=== PATIENT | female | born 1975 | race Caucasian/White ===

== ENCOUNTER 2016-10-27 20:35 | Emergency (ER) | payer SELFPAY ==
[~2016-10-27] VITALS: Ht 160 cm; Wt 61.6 kg
[2016-10-27 20:40] VITALS: TEMP 36.8; Ht 160 cm; Wt 61.6 kg
[2016-10-27] MEDS ORDERED: ONDANSETRON INJ 2 MG/ML 2 ML VIAL IV STA (21:35)
[2016-10-27] MEDS ORDERED: SODIUM CHLORIDE 0.9% 500ML 500 ML IV STA (21:35)
[2016-10-27] MEDS ORDERED: SODIUM CHLORIDE 0.9% 1000ML 1,000 ML IV STA (21:35)
[2016-10-27] MEDS ORDERED: MoRPHine SULFATE 4 MG/ML 1 ML CARP\\VIAL IV STA (21:35)
[2016-10-27 21:50] VITALS: O2SAT 98
--- NOTE | 2016-10-27 21:56 | DIAGNOSTIC IMAGING REPORT ---
CHEST ONE VIEW PORTABLE CLINICAL HISTORY: CHEST PAIN dyspnea COMPARISON STUDY: No previous studies for comparison. FINDINGS: The bones soft tissues and hemidiaphragms are normal. The cardiomediastinal silhouette is normal. The lungs are clear. The pulmonary vasculature is normal. IMPRESSION: Negative chest. Electronically signed by: Lencho Sandoval M.D. 10/27/2016 9:55 PM Dictated Date/Time: 10/27/2016 9:55 PM
[2016-10-27 22:00] LABS: BASO % 0.9 %; BASO ABS # 0.06 K/uL (0-0.2); COMPLETE YES; EOS % 2.7 %; IG% 0.1 %; LYMPH % 42.8 %; LYMPH ABS # 3.02 K/uL (1.2-3.4); MEAN CELL VOLUME 89.9 fL (80-100); MEAN CORPUSCULAR HEMOGLOBIN 32.1 pg (25-34); MEAN CORPUSCULAR HGB CONC 35.7 g/dl (32-36); MONO % 8.4 %; NEUT % 45.1 %; PLATELET COUNT 284 K/uL (130-400); RED BLOOD COUNT 5.23 M/uL (4.2-5.4); WHITE BLOOD COUNT 7.05 K/uL (4.8-10.8)
[2016-10-27 22:02] LABS: POINT OF CARE TROPONIN I 0.01 ng/ml (0-0.045)
[2016-10-27 22:07] LABS: BUN/CREATININE RATIO 11.4 (10-20); CALCIUM 8.7 mg/dl (8.5-10.1); CREATININE 0.99 mg/dl (0.60-1.20); POTASSIUM 3.2 mmol/L (3.5-5.1)
[2016-10-27 22:12] LABS: CKMB/CK RATIO 0.6 (0-3.0)
[2016-10-27] MEDS ORDERED: POTASSIUM CHLORIDE 10 MEQ TABCR PO STA (22:36)
--- NOTE | 2016-10-27 22:55 | DIAGNOSTIC IMAGING REPORT ---
Right upper quadrant ultrasound GALLBLADDER-ABD LIMITED CLINICAL HISTORY: rug pain pain. Nausea. TECHNIQUE: Ultrasound COMPARISON STUDY: None FINDINGS: Normal gallbladder. No shadowing gallstones. Common bile duct 3 mm. Liver pancreas and right kidney within normal limits IMPRESSION: Normal study Electronically signed by: Lencho Sandoval M.D. 10/27/2016 10:53 PM Dictated Date/Time: 10/27/2016 10:52 PM
[2016-10-27] MEDS ORDERED: OPTIRAY 320 IV PRN (23:15)
--- NOTE | 2016-10-28 00:51 | EMERGENCY ROOM VISIT NOTE ---
History First contact with patient: 21:24 Chief Complaint: RIB PAIN Stated Complaint: EXTREME SHARP PAIN IN RT RIB AREA History of Present Illness The patient is a 41 year old female who presents to the Emergency Room with complaints of right-sided chest pain for the past week described as aching, ranging in severity 8 out of 10. Deep inspiration makes it worse and nothing makes it better. Patient was sick 2 weeks ago with an upper respiratory infection. This is not resolved. Patient smokes half a pack per day. No family history of personal history of PE, [place], CVA. No recent travel. No control. No recent surgeries. No hormone replacement. Patient denies abdominal pain, vomiting, diarrhea, leg pain or swelling, diaphoresis. She was at urgent care and was sent here. Review of Systems See HPI for pertinent positives & negatives. A total of 10 systems reviewed and were otherwise negative. Past Medical/Surgical History Medical Problems: (1) Endometriosis (2) history of MRSA infection (3) Hysterectomy Family History Patient reports no known family medical history. Social History Smoking Status: Current Every Day Smoker Alcohol Use: none Drug Use: none Marital Status: Housing Status: lives with family Occupation Status: unemployed Current/Historical Medications No Active Prescriptions or Reported Meds Allergies Coded Allergies: Codeine (Verified Allergy, Unknown, GI SYMPTOMS, 10/27/16) Physical Exam Vital Signs Date Time Temp Pulse Resp B/P Pulse Ox O2 Delivery O2 Flow Rate FiO2 10/28/16 00:09 52 18 105/65 95 Room Air 10/27/16 23:01 57 18 99/64 98 Room Air 10/27/16 22:05 70 10/27/16 22:04 80 18 125/83 98 Room Air 10/27/16 21:50 98 10/27/16 21:50 98 Room Air 10/27/16 20:40 36.8 70 18 156/100 98 Room Air Physical Exam VITALS: Vitals are noted on the nurse's note and reviewed by myself. Vital signs stable. GENERAL: Pleasant female, in no acute distress, nondiaphoretic, well-developed well-nourished. SKIN: The skin was without rashes, erythema, edema, or bruising. There is no tenting of the skin. Capillary reflex less than 2 seconds. HEAD: Normocephalic atraumatic. EARS: External auditory canals clear, tympanic membranes pearly greene without erythema or effusion bilaterally. EYES: Pupils equal round and reactive to light and accommodation. Conjunctivae without injection, sclerae without icterus. Extraocular movements intact. NOSE: Patent, turbinates without inflammation or discharge. MOUTH: Mucous membranes moist. Pharynx without erythema or exudate. Uvula midline. Airway patent. Tongue does not deviate. NECK: Supple without nuchal rigidity. No lymphadenopathy. No thyromegaly. Cervical spine is nontender. No JVD. HEART: Regular rate and rhythm without murmurs gallops or rubs. No chest wall tenderness or signs of shingles LUNGS: Clear to auscultation bilaterally without wheezes, rales or rhonchi. No dullness to percussion. No retractions or accessory muscle use. ABDOMEN: Positive bowel sounds x 4. Normal tympanic percussion. Soft, nontender, without masses or organomegaly. James sign negative. No guarding or rebound tenderness. MUSCULOSKELETAL: No muscle atrophy, erythema, or edema noted. NEURO: Patient was alert and oriented to person place and time. Normal sensation to light and sharp touch. No focal neurological deficits. Medical Decision & Procedures Laboratory Results 10/27/16 20:55 Red Blood Count 5.23, Mean Corpuscular Volume 89.9, Mean Corpuscular Hemoglobin 32.1, Mean Corpuscular Hemoglobin Concent 35.7, Mean Platelet Volume 11.0, Neutrophils (%) (Auto) 45.1, Lymphocytes (%) (Auto) 42.8, Monocytes (%) (Auto) 8.4, Eosinophils (%) (Auto) 2.7, Basophils (%) (Auto) 0.9, Neutrophils # (Auto) 3.18, Lymphocytes # (Auto) 3.02, Monocytes # (Auto) 0.59, Eosinophils # (Auto) 0.19, Basophils # (Auto) 0.06 10/27/16 20:55 Test 10/27/16 20:55 10/27/16 21:47 10/28/16 00:25 White Blood Count 7.05 K/uL (4.8-10.8) Red Blood Count 5.23 M/uL (4.2-5.4) Hemoglobin 16.8 g/dL (12.0-16.0) Hematocrit 47.0 % (37-47) Mean Corpuscular Volume 89.9 fL (80-100) Mean Corpuscular Hemoglobin 32.1 pg (25-34) Mean Corpuscular Hemoglobin Concent 35.7 g/dl (32-36) Platelet Count 284 K/uL (130-400) Mean Platelet Volume 11.0 fL (7.4-10.4) Neutrophils (%) (Auto) 45.1 % Lymphocytes (%) (Auto) 42.8 % Monocytes (%) (Auto) 8.4 % Eosinophils (%) (Auto) 2.7 % Basophils (%) (Auto) 0.9 % Neutrophils # (Auto) 3.18 K/uL (1.4-6.5) Lymphocytes # (Auto) 3.02 K/uL (1.2-3.4) Monocytes # (Auto) 0.59 K/uL (0.11-0.59) Eosinophils # (Auto) 0.19 K/uL (0-0.5) Basophils # (Auto) 0.06 K/uL (0-0.2) RDW Standard Deviation 46.7 fL (36.4-46.3) RDW Coefficient of Variation 14.3 % (11.5-14.5) Immature Granulocyte % (Auto) 0.1 % Immature Granulocyte # (Auto) 0.01 K/uL (0.00-0.02) Anion Gap 12.0 mmol/L (3-11) Est Creatinine Clear Calc Drug Dose 63.1 ml/min Estimated GFR () 83.2 Estimated GFR (Non- 71.8 BUN/Creatinine Ratio 11.4 (10-20) Calcium Level 8.7 mg/dl (8.5-10.1) Total Bilirubin 0.7 mg/dl (0.2-1) Direct Bilirubin 0.1 mg/dl (0-0.2) Aspartate Amino Transf (AST/SGOT) 16 U/L (15-37) Alanine Aminotransferase (ALT/SGPT) 21 U/L (12-78) Alkaline Phosphatase 59 U/L (45-117) Total Creatine Kinase 93 U/L (26-192) Creatine Kinase MB 0.6 ng/ml (0.5-3.6) Creatine Kinase MB Ratio 0.6 (0-3.0) Total Protein 7.4 gm/dl (6.4-8.2) Albumin 4.3 gm/dl (3.4-5.0) Lipase 163 U/L (73-393) Bedside D-Dimer 245 ng/mlFEU (0-450) Bedside Troponin I 0.000 ng/ml (0-0.045) Medications Administered Medications (Trade) Dose Ordered Sig/Sweetie Route Start Time Stop Time Status Last Admin Dose Admin Sodium Chloride 1,000 ml @ 125 mls/hr Q8H STAT IV 10/27/16 21:35 10/28/16 05:34 10/27/16 21:35 125 MLS/HR Sodium Chloride (Nss 500ml) 500 ml @ 999 mls/hr Q31M STAT IV 10/27/16 21:35 10/27/16 22:05 DC 10/27/16 21:35 999 MLS/HR Morphine Sulfate (MoRPHine SULFATE INJ) 4 mg NOW STAT IV 10/27/16 21:35 10/27/16 21:36 DC 10/27/16 22:02 4 MG Ondansetron HCl (Zofran Inj) 4 mg NOW STAT IV 10/27/16 21:35 10/27/16 21:36 DC 10/27/16 22:02 4 MG Potassium Chloride (Klor-Con M10) 30 meq NOW STAT PO 10/27/16 22:36 10/27/16 22:37 DC 10/27/16 23:00 30 MEQ ED Course Prior records/ancillary studies reviewed. Triage Nursing notes reviewed. The patient's history was concerning for chest pain. Differential diagnosis: Etiologies such as cardiac ischemia, aortic dissection, pulmonary embolism, pneumonia, pneumothorax, musculoskeletal, infections, pericarditis, myocarditis , esophageal rupture, gastrointestinal, as well as others were entertained. Physical examination: As above. ER treatment provided: Morphine, Zofran, IV fluids On reassessment the patient felt better. Diagnostic interpretation by me: The electrocardiogram was negative for pathologic change. Normal sinus, normal intervals, left axis deviation, T-wave flattening in V3, rate of 53. Impression sinus bradycardia with left axis deviation interpreted by myself The labs revealed 2 sets of negative troponins 2 hours apart. Hypokalemia and this is replaced orally Imaging studies: Chest x-ray as above CLINICAL HISTORY: CHEST PAIN dyspnea COMPARISON STUDY: No previous studies for comparison. FINDINGS: The bones soft tissues and hemidiaphragms are normal. The cardiomediastinal silhouette is normal. The lungs are clear. The pulmonary vasculature is normal. IMPRESSION: Negative chest. Right upper quadrant ultrasound GALLBLADDER-ABD LIMITED CLINICAL HISTORY: rug pain pain. Nausea. TECHNIQUE: Ultrasound COMPARISON STUDY: None FINDINGS: Normal gallbladder. No shadowing gallstones. Common bile duct 3 mm. Liver pancreas and right kidney within normal limits IMPRESSION: Normal study Electronically signed by: Lencho Sandoval M.D. CTA negative for PE per stat radiology Exam and history seem consistent with noncardiac chest pain. she is mildly short of breath and was a smoker with chest pain. CTA was ordered for rule out PE. This was negative. Her symptoms are most likely related to pleurisy as patient was sick 2 weeks ago with cold-like symptoms. She normal EKG and 2 negative troponins 2 hours apart. Her symptoms have been present for a week. No family history of heart disease. No personal history of heart disease. She is a smoker. She is strongly encouraged to quit smoking and to follow-up this week with family care here in the ER sooner for chest pain, difficulty breathing , worsening signs or symptoms or as needed. Patient was also informed about shingles. She has no current signs or symptoms of this. By the evaluation outlined above emergent etiologies such as cardiac ischemia, aortic dissection, pulmonary embolism, pneumonia, pneumothorax, infections, pericarditis, myocarditis, gastrointestinal, as well as others were deemed relatively unlikely. The pt informed about the findings as listed above. All questions were answered and pleased with the treatment. Return instructions were outlined and the patient was discharged in stable condition. Referral: The patient was referred back to primary care physician for follow-up in 2 to 3 days for a recheck of the current condition. Case reviewed with my attending Medical Decision as above Impression Primary Impression: Precordial chest pain Additional Impression: Pleurisy Departure Information Dispostion Home / Self-Care Condition GOOD Prescriptions No Active Prescriptions or Reported Meds Referrals No Doctor, Assigned (PCP) Patient Instructions My [facility] Additional Instructions Ibuprofen(Motrin, Advil) may be used for fever or pain. Use 600mg every six hours as needed. Take with food. Avoid using more than 2400mg in a 24 hour period. Do not use 2400mg per day for more than three consecutive days without physician direction. Prolonged inappropriate use can lead to stomach upset or ulcers. (AND/OR) Acetaminophen(Tylenol) may be used for fever or pain. Use 1000mg every six hours as needed. Avoid using more than 3000mg in a 24 hour period. Rest and drink plenty of fluids as tolerated. Continue current medications. Avoid strenuous activities and anything that worsens your pain. Resume normal activities once your symptoms resolve. Return to the ER immediately for worsening or persistent chest pain, abdominal pain, vomiting, fevers, chest pains, difficulty breathing, worsening of your condition, or as needed. Follow up with your primary physician in 2-3 days for a recheck of your current condition. Problem Qualifiers
[2016-10-28] MEDS ORDERED: OXYCODONE IR HOME PACK PO ONE (01:00)
[2016-10-28 01:12] VITALS: BP 107/61; PULSE 69; O2SAT 98
--- NOTE | 2016-10-28 07:27 | DIAGNOSTIC IMAGING REPORT ---
CT ANGIOGRAM OF THE CHEST CLINICAL HISTORY: Atypical chest pain. COMPARISON STUDY: Chest radiograph dated 10/27/2016. TECHNIQUE: Following the IV administration of 91 cc of Optiray 320, CT angiogram of the chest was performed from the upper abdomen to the thoracic inlet utilizing the pulmonary embolus protocol. Images are reviewed in the axial, sagittal, and coronal planes. 3-D MIPS images are created and assessed. IV contrast was administered without complication. CT DOSE: 193.43 mGy.cm FINDINGS: Thyroid: Imaged portions of the thyroid gland are normal in size and attenuation. Thoracic aorta: The thoracic aorta is normal in caliber and demonstrates standard 3-vessel arch anatomy. No dissection is seen. Pulmonary vasculature: The pulmonary trunk is normal in caliber. There are no filling defects identified in main, lobar, or segmental pulmonary branches to suggest pulmonary embolus. Heart: The heart is normal in size and configuration, and without pericardial effusion. Lungs and pleural spaces: There is no airspace consolidation or pleural effusion. Mild diffuse peribronchial thickening is observed. There is dependent atelectasis. The trachea and central airways are clear. Mediastinum: There is no mediastinal lymphadenopathy. Massiel: Clear. Axillae: There is no axillary lymphadenopathy. Upper abdomen: Partially visualized upper abdominal viscera is within normal limits. Skeletal structures: No lytic or blastic bony lesions are seen. IMPRESSION: 1. There is no evidence of pulmonary embolus in the main, lobar, or segmental pulmonary arteries. 2. There is no airspace consolidation or pleural effusion. Mild diffuse peribronchial thickening suggests reactive airway disease. Clinical correlation will be required. Electronically signed by: Francis Aviles M.D. 10/28/2016 7:26 AM Dictated Date/Time: 10/28/2016 7:23 AM
== END 2016-10-28 01:17 | disposition home or self-care (01) ==
LOC: C.EDB 20:36 → C.EDC 10-28 01:17
DX: R07.2 Precordial pain (principal); R09.1 Pleurisy; E87.6 Hypokalemia; F17.200 Nicotine dependence, unspecified, uncomplicated